=== PATIENT | female | born 2000 | race Caucasian/White ===

== ENCOUNTER 2020-10-18 01:57 | Emergency (ER) | payer BC ==
[~2020-10-18] VITALS: Ht 167.6 cm; Wt 56.7 kg
[2020-10-18] MEDS ORDERED: ONDANSETRON HCL/PF 4 MG/2 ML VIAL ONE (02:08)
[2020-10-18] MEDS: ONDANSETRON HCL/PF 4 MG/2 ML VIAL IM ONE (02:17)
--- NOTE | 2020-10-18 05:03 | NUR ---
PATIENT SLEEPING. EASILY AROUSABLE THROUGH VERBAL STIMULI. PATIENT IS BREATHING EVENLY AND UNLABORED ON ROOM AIR. CONNECTED TO THE MONITOR. SIDE RAILS ARE UP FOR SAFETY. CALL LIGHT IS WITHIN REACH. SITTER AT BEDSIDE.
--- NOTE | 2020-10-18 05:43 | NUR ---
PT AWAKE. [id number]. AMBULATORY WITH STEADY GAIT. AWARE
--- NOTE | 2020-10-18 06:18 | NUR ---
PT REQUESTING FOR URINE DRUG SCREEN. MD DISLA
--- NOTE | 2020-10-18 06:21 | NUR ---
URINE COLLECTED AND SENT TO LAB
[2020-10-18 06:51] VITALS: BP 123/77
--- NOTE | 2020-10-18 06:51 | NUR ---
Patient discharged to home in stable condition. Written and verbal after care instructions given. Patient verbalizes understanding of instruction.
--- NOTE | 2020-10-18 06:51 | NUR ---
Patient is ambulatory with a steady gait.
--- NOTE | 2020-10-18 06:51 | NUR ---
Patient is picked up by father.
== END 2020-10-18 06:51 | disposition home or self-care (01) ==
LOC: ER 01:59
DX: F10.129 Alcohol abuse with intoxication, unspecified (principal); R11.10 Vomiting, unspecified; Y90.9 Presence of alcohol in blood, level not specified
CPT/HCPCS: 80307; 82962; 96372; 99283; J2405